=== PATIENT | male | born 1970 | race Two or more races ===

== ENCOUNTER 2024-11-24 16:56 | Emergency (ER) | payer MEDICAID, SELFPAY ==
[2024-11-24 17:06] VITALS: BP 151/86; PULSE 118; RESP 18; TEMP 36.8; O2SAT 95; BMI 25.0
--- NOTE | 2024-11-24 17:12 | XR_ITS ---
Examination: CT cervical spine without contrast 2-D sagittal reconstructions 2-D coronal reconstructions 3-D reconstructions. Exam date and time:November 24, 2024 1845 hours INDICATIONS: Patient fell today with injury to the neck, neck pain CTDI:vol (mGy) 8.62 DLP: (mGycm) 200 Technique: Multiple 2 mm axial sections of the cervical spine have been obtained. The coronal and sagittal reconstructions have been obtained. 3-D reconstructions have been obtained. Low dose protocols were performed. One or more of the following dose reduction techniques were used; automated exposure control, adjustment of the mA and/or KV according to patient size, use of iterative reconstruction technique. Findings: Axial sections demonstrate intact base of the skull. C1 exhibit satisfactory relationship to the odontoid. No acute cervical vertebral body fracture seen. Alignment posterior spinous processes satisfactory. Impression: No acute cervical fracture.
--- NOTE | 2024-11-24 17:12 | XR_ITS ---
Examination: CT brain head without contrast. 2-D sagittal coronal reconstructions Date and time of exam:November 24, 2024 1854 hours INDICATIONS: Patient fell today with into the head, head pain CTDI: vol (mGy):50.1 DLP: (mGycm):1037 Technique: Multiple CT axial sections of the brain have been obtained, 5 mm slice thickness. Contrast has not been administered. 2-D sagittal, coronal reconstructions have been obtained Low dose protocols were performed. One or more of the following dose reduction techniques were used; automated exposure control, adjustment of the mA and/or KV according to patient size, use of iterative reconstruction technique. Findings: No significant ventricular enlargement. Intra-axial or extra-axial hemorrhage density is not seen. No mass effect or midline shift Basal cisterns are not remarkable. Fourth ventricle is midline. Cranial vault intact. Impression: Negative for acute hemorrhage, mass effect or midline shift
--- NOTE | 2024-11-24 17:13 | EDRME_ITS ---
Rapid Medical Screening Exam [facility] Arrival date/time: 11/24/24 16:56 54-year-old male with no known medical history presents to the emergency room with a chief complaint of a fall that occurred this morning. Patient states he fell down his stairs while going to work. In the process patient states he hit his head. Today he is complaining of neck pain and headache and epistaxis that has been going on for the last 2 hours and has not been able to stop. I have greeted and performed a focused initial assessment of this patient. A comprehensive ED assessment and evaluation of the patient, analysis of all test results, and completion of the medical decision making process will be conducted by additional ED providers. Chief Complaint: Epistaxis/Nasal Foreign Body Time Seen by Provider: 11/24/24 16:59 Vital signs: Vital Signs Temperature 98.2 F 11/24/24 17:06 Pulse Rate 118 H 11/24/24 17:06 Respiratory Rate 18 11/24/24 17:06 Blood Pressure 151/86 H 11/24/24 17:06 Pulse Oximetry (%) 95 11/24/24 17:06 Oxygen Delivery Method Room Air 11/24/24 17:06 Vital signs reviewed by provider: Yes
--- NOTE | 2024-11-24 21:29 | PD.EDEPIST ---
ED Epistaxis RME/HPI General Chief complaint: Epistaxis/Nasal Foreign Body Stated complaint: NOSE BLEED X 1400 Time Seen by Provider: 11/24/24 16:59 Arrival date/time: 11/24/24 16:56 RME / HPI RME / HPI Narrative: 11/24/24 16:56 54-year-old male with no known medical history presents to the emergency room with a chief complaint of a fall that occurred this morning. Patient states he fell down his stairs while going to work. In the process patient states he hit his head. Today he is complaining of neck pain and headache and epistaxis that has been going on for the last 2 hours and has not been able to stop. I have greeted and performed a focused initial assessment of this patient. A comprehensive ED assessment and evaluation of the patient, analysis of all test results, and completion of the medical decision making process will be conducted by additional ED providers. Dr. Mackenzie?s Main ED Evaluation: Related Data Allergies Allergy/AdvReac Type Severity Reaction Status Date / Time NKA* Allergy Uncoded 12/24/12 09:23 Review of Systems Review of Systems Systems Reviewed: All systems reviewed, normal except as documented Past Medical History Social History SMOKING STATUS: Never smoker ED Exam Narrative Physical exam: GENERAL APPEARANCE: alert and oriented x 4, well-developed, well-nourished, no acute distress VITALS: All vitals were reviewed and the pulse ox is 95% on room air, which is normal according to my interpretation. HEENT: Normocephalic, atraumatic; pupils equal, round, reactive to light; EOMI; mucous membranes pink, moist; oropharynx clear NECK: Supple LUNGS: CTABL; no wheezes, no rales, no rhonchi HEART: Regular rate, regular rhythm; normal S1, S2; no murmurs ABDOMEN: non distended; normal BS; soft, no tenderness, no guarding, no rebound; no masses, no organomegaly, no hernia BACK: no CVA tenderness EXTREMITIES: atraumatic; no edema NEUROLOGIC: awake; alert and oriented x4; cranial nerves II-XII grossly intact; no focal sensory or motor deficits PSYCHIATRIC: appropriate mood and affect SKIN: warm, dry, normal color; no rashes Course Quality Measures none Orders Category Date Time Status CT cervical spine wo con Stat Exams 11/24/24 17:[address] head/brain wo con Stat Exams 11/24/24 17:12 Completed Vital Signs Vital signs: Vital Signs Temperature 98.2 F 11/24/24 17:06 Pulse Rate 118 H 11/24/24 17:06 Respiratory Rate 18 11/24/24 17:06 Blood Pressure 151/86 H 11/24/24 17:06 Pulse Oximetry (%) 95 11/24/24 17:06 Oxygen Delivery Method Room Air 11/24/24 17:06 Epistaxis MDM Narrative MDM Narrative:: Scribe Attestation: 11/24/24 - Marilyn Borden am scribing for and in the presence of Dr. Mackenzie. Patient data External records reviewed:: [facility] previous records (Per chart review, patient has no previous ED visits or admissions to this facility.) Clinical information provided by:: patient Social determinants that could affect healthcare access:: none Patient has the following chronic illnesses:: none How is presenting disease/condition affected by chronic disease/condition?: no chronic disease Evaluation data The following diagnostics were reviewed and interpreted by me:: radiology exam(s) Lab and/or radiology exams considered but not ordered:: none Interpretation Summary: [facility] Report Signed Patient: ZITA BORJAS Record#: [id number] Birthdate: 1970 Age/Sex: 54 / M Location: [facility] Attending Dr: Ordering Physician: Olegario Malave Date of Service: 11/24/24 Procedure(s): CT head/brain wo con Accession Number(s): [id number] cc: Olegario Malave; Tyler eRno MD; NO PRIMARY/FAMILY,PHYSICIAN~ Examination: CT brain head without contrast. 2-D sagittal coronal reconstructions Date and time of exam:November 24, 2024 1854 hours INDICATIONS: Patient fell today with into the head, head pain CTDI: vol (mGy):50.1 DLP: (mGycm):1037 Technique: Multiple CT axial sections of the brain have been obtained, 5 mm slice thickness. Contrast has not been administered. 2-D sagittal, coronal reconstructions have been obtained Low dose protocols were performed. One or more of the following dose reduction techniques were used; automated exposure control, adjustment of the mA and/or KV according to patient size, use of iterative reconstruction technique. Findings: No significant ventricular enlargement. Intra-axial or extra-axial hemorrhage density is not seen. No mass effect or midline shift Basal cisterns are not remarkable. Fourth ventricle is midline. Cranial vault intact. Impression: Negative for acute hemorrhage, mass effect or midline shift Dictated By: Tyler Reno MD Signed By: <Electronically signed by Tyler Reno MD in OV> 11/24/24 193 [facility] Report Signed Patient: ZITA BORJAS Record#: [id number] Birthdate: 1970 Age/Sex: 54 / M Location: [facility] Attending Dr: Ordering Physician: Olegario Malave Date of Service: 11/24/24 Procedure(s): CT cervical spine wo con Accession Number(s): [id number] cc: Olegario Malave; Tyler Reno MD; NO PRIMARY/FAMILY,PHYSICIAN~ Examination: CT cervical spine without contrast 2-D sagittal reconstructions 2-D coronal reconstructions 3-D reconstructions. Exam date and time:November 24, 2024 1845 hours INDICATIONS: Patient fell today with injury to the neck, neck pain CTDI:vol (mGy) 8.62 DLP: (mGycm) 200 Technique: Multiple 2 mm axial sections of the cervical spine have been obtained. The coronal and sagittal reconstructions have been obtained. 3-D reconstructions have been obtained. Low dose protocols were performed. One or more of the following dose reduction techniques were used; automated exposure control, adjustment of the mA and/or KV according to patient size, use of iterative reconstruction technique. Findings: Axial sections demonstrate intact base of the skull. C1 exhibit satisfactory relationship to the odontoid. No acute cervical vertebral body fracture seen. Alignment posterior spinous processes satisfactory. Impression: No acute cervical fracture. Dictated By: Tyler Reno MD Signed By: <Electronically signed by Tyler Reno MD in OV> 03/05/25 1930 Medications / Prescriptions Medications or Prescriptions considered but not ordered:: none Discharge Plan Prescriptions/Referrals Referrals: No Primary/Family,Physician [Primary Care Provider] - In 1 week Patient/Caregiver Discharge Instructions Print Language: Yakut
--- NOTE | 2024-11-24 21:44 | XR_ITS ---
Examination: CT maxillofacial, without intravenous contrast. 2-D sagittal reconstructions. 3-D reconstructions. Date and time of exam:November 24, 2024 1002 hrs. Indications: Patient fell today at 2:00 PM with facial pain nose pain CTDI: vol (mGy):21.5 DLP: (mGycm):435 Technique: Multiple axial images of maxillofacial region, 3.0 mm slice thickness. 2-D sagittal and coronal reconstructions. 3-D reconstructions. Low dose protocols were performed. One or more of the following dose reduction techniques were used; automated exposure control, adjustment of the mA and/or KV according to patient size, use of iterative reconstruction technique. Findings: Frontal bone frontal sinuses intact Nasal bones intact Fracture nasal septum axial image 78 Orbital rims appear intact Mucosal thickening/blood in the right and left nasal airways Pterygoid plates maxilla and the mandible intact Impression: Acute appearing angulated fracture nasal septum.
[2024-11-24] MEDS: ACETAMINOPHEN 500 MG TABLET 1000 MG PO (21:55)
--- NOTE | 2024-11-24 23:29 | EDNOTE_ITS ---
ED Epistaxis RME/HPI General Chief complaint: Epistaxis/Nasal Foreign Body Stated complaint: NOSE BLEED X 1400 Time Seen by Provider: 11/24/24 16:59 Arrival date/time: 11/24/24 16:56 RME / HPI RME / HPI Narrative: 11/24/24 16:56 54-year-old male with no known medical history presents to the emergency room with a chief complaint of a fall that occurred this morning. Patient states he fell down his stairs while going to work. In the process patient states he hit his head. Today he is complaining of neck pain and headache and epistaxis that has been going on for the last 2 hours and has not been able to stop. I have greeted and performed a focused initial assessment of this patient. A comprehensive ED assessment and evaluation of the patient, analysis of all test results, and completion of the medical decision making process will be conducted by additional ED providers. Dr. Mackenzie?s Main ED Evaluation: 54yo male with no significant past medical history presents to the ED for a fall. Patient states he was walking up the stair this morning when he stumbled and fell, hitting his head. He denies any loss of consciousness. Patient states he had a headache and developed bleeding from his nose that would not stop, so he came in for evaluation. He denies any neck pain, chest pain, abdominal pain, extremity pain or any other associated symptoms. No known allergies. Related Data Previous Rx's ?Medication ?Instructions ?Recorded hydrocodone 5 mg-acetaminophen 325 1 tab PO Q6H PRN pa in 3 days #12 11/24/24 mg tablet tabs ibuprofen 600 mg tablet 600 mg PO Q6H PRN pain 5 day s #20 11/24/24 tabs Allergies Allergy/AdvReac Type Severity Reaction Status Date / Time NKA* Allergy Uncoded 12/24/12 09:23 Review of Systems Review of Systems Systems Reviewed: All systems reviewed, normal except as documented ED Exam Narrative Physical exam: GENERAL APPEARANCE: alert and oriented x 4, well-developed, well-nourished, no acute distress VITALS: All vitals were reviewed and the pulse ox is % on room air, which is normal according to my interpretation. HEENT: Normocephalic; pupils equal, round, reactive to light; EOMI; dry blood to the bilateral nares, no septal hematoma, no active bleeding; mucous membranes pink, moist; oropharynx clear NECK: Supple LUNGS: CTABL; no wheezes, no rales, no rhonchi HEART: Regular rate, regular rhythm; normal S1, S2; no murmurs ABDOMEN: non distended; normal BS; soft, no tenderness, no guarding, no rebound; no masses, no organomegaly, no hernia BACK: no CVA tenderness EXTREMITIES: atraumatic; no edema NEUROLOGIC: awake; alert and oriented x4; cranial nerves II-XII grossly intact; no focal sensory or motor deficits PSYCHIATRIC: appropriate mood and affect SKIN: warm, dry, normal color; no rashes Course Quality Measures none Orders Category Date Time Status CT cervical spine wo con Stat Exams 11/24/24 17:[address] facial bones wo con Stat Exams 11/24/24 21:[address] head/brain wo con Stat Exams 11/24/24 17:12 Completed Acetaminophen Tab [Tylenol ES Tab] Med 11/24/24 21:45 Discontinued 1,000 mg PO X1 ONE Vital Signs Vital signs: Vital Signs Temperature 98.2 F 11/24/24 17:06 Pulse Rate 118 H 11/24/24 17:06 Respiratory Rate 18 11/24/24 17:06 Blood Pressure 151/86 H 11/24/24 17:06 Pulse Oximetry (%) 95 11/24/24 17:06 Oxygen Delivery Method Room Air 11/24/24 17:06 Epistaxis MDM Narrative MDM Narrative:: Scribe Attestation: 11/24/24 Marilyn Barfield am scribing for and in the presence of Dr. Mackenzie. Patient data External records reviewed:: [facility] previous records (Per chart review, patient has no previous ED visits or admissions to this facility.) Clinical information provided by:: patient Social determinants that could affect healthcare access:: none Patient has the following chronic illnesses:: none How is presenting disease/condition affected by chronic disease/condition?: no chronic disease Evaluation data The following diagnostics were reviewed and interpreted by me:: radiology exam(s) Lab and/or radiology exams considered but not ordered:: none Interpretation Summary: [facility] Report Signed Patient: ZITA BORJAS [facility]. Record#: [id number] Birthdate: 1970 Age/Sex: 54 / M Location: [facility] Attending Dr: Ordering Physician: Malorie CHOUDHURY)Ludwin Date of Service: 11/24/24 Procedure(s): CT facial bones wo con Accession Number(s): [id number] cc: Tyler Reno MD; NO PRIMARY/FAMILY,PHYSICIAN; Malorie CHOUDHURY)Ludwin~ Examination: CT maxillofacial, without intravenous contrast. 2-D sagittal reconstructions. 3-D reconstructions. Date and time of exam:November 24, 2024 1002 hrs. Indications: Patient fell today at 2:00 PM with facial pain nose pain CTDI: vol (mGy):21.5 DLP: (mGycm):435 Technique: Multiple axial images of maxillofacial region, 3.0 mm slice thickness. 2-D sagittal and coronal reconstructions. 3-D reconstructions. Low dose protocols were performed. One or more of the following dose reduction techniques were used; automated exposure control, adjustment of the mA and/or KV according to patient size, use of iterative reconstruction technique. Findings: Frontal bone frontal sinuses intact Nasal bones intact Fracture nasal septum axial image 78 Orbital rims appear intact Mucosal thickening/blood in the right and left nasal airways Pterygoid plates maxilla and the mandible intact Impression: Acute appearing angulated fracture nasal septum. Dictated By: Tyler Reno MD Signed By: <Electronically signed by Tyler Reno MD in OV> 11/24/24 2241 [facility] Report Signed Patient: ZITA BORJAS [facility]. Record#: [id number] Birthdate: 1970 Age/Sex: 54 / M Location: [facility] Attending Dr: Ordering Physician: Olegario Malave Date of Service: 11/24/24 Procedure(s): CT head/brain wo con Accession Number(s): [id number] cc: Olegario Malave; Tyler Reno MD; NO PRIMARY/FAMILY,PHYSICIAN~ Examination: CT brain head without contrast. 2-D sagittal coronal reconstructions Date and time of exam:November 24, 2024 1854 hours INDICATIONS: Patient fell today with into the head, head pain CTDI: vol (mGy):50.1 DLP: (mGycm):1037 Technique: Multiple CT axial sections of the brain have been obtained, 5 mm slice thickness. Contrast has not been administered. 2-D sagittal, coronal reconstructions have been obtained Low dose protocols were performed. One or more of the following dose reduction techniques were used; automated exposure control, adjustment of the mA and/or KV according to patient size, use of iterative reconstruction technique. Findings: No significant ventricular enlargement. Intra-axial or extra-axial hemorrhage density is not seen. No mass effect or midline shift Basal cisterns are not remarkable. Fourth ventricle is midline. Cranial vault intact. Impression: Negative for acute hemorrhage, mass effect or midline shift Dictated By: Tyler Reno MD Signed By: <Electronically signed by Tyler Reno MD in OV> 11/24/24 193 [facility] Report Signed Patient: ZITA BORJAS. Record#: [id number] Birthdate: 1970 Age/Sex: 54 / M Location: [facility] Attending Dr: Ordering Physician: Olegario Malave Date of Service: 11/24/24 Procedure(s): CT cervical spine wo con Accession Number(s): [id number] cc: Olegario Malave; Tyler Reno MD; NO PRIMARY/FAMILY,PHYSICIAN~ Examination: CT cervical spine without contrast 2-D sagittal reconstructions 2-D coronal reconstructions 3-D reconstructions. Exam date and time:November 24, 2024 1845 hours INDICATIONS: Patient fell today with injury to the neck, neck pain CTDI:vol (mGy) 8.62 DLP: (mGycm) 200 Technique: Multiple 2 mm axial sections of the cervical spine have been obtained. The coronal and sagittal reconstructions have been obtained. 3-D reconstructions have been obtained. Low dose protocols were performed. One or more of the following dose reduction techniques were used; automated exposure control, adjustment of the mA and/or KV according to patient size, use of iterative reconstruction technique. Findings: Axial sections demonstrate intact base of the skull. C1 exhibit satisfactory relationship to the odontoid. No acute cervical vertebral body fracture seen. Alignment posterior spinous processes satisfactory. Impression: No acute cervical fracture. Dictated By: Tyler Reno MD Signed By: <Electronically signed by Tyler Reno MD in OV> 11/24/24 1930 Medications / Prescriptions Medications or Prescriptions considered but not ordered:: none Medication administrations:: Medication Administration History Discontinued Medications Acetaminophen (Acetaminophen 500 Mg Tablet) 1,000 mg PO X1 ONE Stop: 11/24/24 21:46 Last Admin: 11/24/24 21:55 Dose: 1,000 mg Documented By: CB see above Consultations Consultation(s) initiated? (list below): No Diagnosis Epistaxis Differential Diagnosis: nasal bone fracture, anterior epistaxis, posterior epistaxis and other (facial fracture, septal hematoma) Most likely diagnosis given after review of the tests above:: see below Admission Indicated Admission indicated?: not indicated Admission Request Was there a request for admission?: No Disposition Plan Disposition Plan: Discharge Discharge Attestation Discharge Attestation: The patient and all family members were given an opportunity to ask questions and understood the discharge instructions. Discharge instructions specifically effects, indications for sooner follow up or return to the emergency department, and the expected course of current diagnosis. Patient condition: Stable Discharge Plan Plan Patient Disposition: HOME (Self Care) Disposition Comment: Stable for discharge Patient condition on transfer: Stable Prescriptions/Referrals Prescriptions/Med Rec: New ibuprofen 600 mg tablet 600 mg PO Q6H PRN (Reason: pain) 5 Days Qty: 20 0RF hydrocodone-acetaminophen 5-325 mg tablet 1 tab PO Q6H MDD 4 tabs PRN (Reason: pain) 3 Days Qty: 12 0RF Referrals: Replaced By [facility] [Outside] - In 1 week Problem List Clinical Impression: Epistaxis, Closed fracture nasal bone Patient/Caregiver Discharge Instructions Discharge Activity: activity as tolerated Education Materials: How Bones Heal, ED Epistaxis (Adult), ED Nose Fracture, with X-Ray Additional Instructions: Please return to the emergency department if you have any worsening or any further medical problems and we will help you. Otherwise you should follow-up with with your primary care doctor or in the [facility] within the next several days. Have given you contact information for the [facility]. Please just give them a call and make an appointment for the coming days. Print Language: [place] Stand Alone Forms: [facility]y Award Info., Patient Portal Info Letter
[2024-11-24 23:35] VITALS: PULSE 87; RESP 19; TEMP 36.6; O2SAT 99
== END 2024-11-24 23:36 | disposition home or self-care (01) ==
PROVIDERS: Emergency Provider Emergency Medicine
DX: S02.2XXA Fracture of nasal bones, initial encounter for closed fracture (principal); W10.9XXA Fall (on) (from) unspecified stairs and steps, initial encounter; Y93.01 Activity, walking, marching and hiking; R51.9 Headache, unspecified; M54.2 Cervicalgia
CPT/HCPCS: 70450; 70486; 72125; 99284; A9270